=== PATIENT | female | born 1965 | race Caucasian/White ===

== ENCOUNTER 2018-04-10 16:29 | Emergency (ER) | payer BC | END 2018-04-10 17:48 | disposition home or self-care (01) | LOC: ER 16:29 | DX: M25.551 Pain in right hip (principal); M79.604 Pain in right leg; M19.90 Unspecified osteoarthritis, unspecified site; Z90.710 Acquired absence of both cervix and uterus; Z88.0 Allergy status to penicillin | CPT/HCPCS: 99283 ==

== ENCOUNTER → 2018-04-13 | Outpatient (CLI) | payer BC | END | disposition home or self-care (01) | LOC: KCIC MRI 07:51 | DX: S43.431A Superior glenoid labrum lesion of right shoulder, initial encounter (principal); M76.01 Gluteal tendinitis, right hip; I10 Essential (primary) hypertension; X58.XXXA Exposure to other specified factors, initial encounter; Y93.89 Activity, other specified; Y92.89 Other specified places as the place of occurrence of the external cause; Y99.8 Other external cause status | CPT/HCPCS: 73721 ==